=== PATIENT | female | born 1970 | race American Indian/Alaskan Native ===

== ENCOUNTER 2018-12-26 08:25 | Emergency (ER) | payer OTHER ==
[~2018-12-26] VITALS: Ht 160 cm; Wt 59.5 kg
[2018-12-26 08:33] VITALS: BP 110/73; PULSE 85; TEMP 98.6
[2018-12-26] MEDS ORDERED: LEXAPRO 10MG10 MG PO (08:46)
[2018-12-26] MEDS ORDERED: XANAX .25M0.25 MG/TA PO (08:47)
[2018-12-26] MEDS ORDERED: DESYREL 50MG50 MG PO (08:47)
[2018-12-26 10:04] LABS: HIV 1/2 Antibodies Non-Reactive; HIV-1p24 Antigen Non-Reactive
[2018-12-26 17:08] LABS: HEPATITIS B SURFACE ANTIGEN Negative (Negative); HEPATITIS C VIRUS ANTIBODY Negative (Negative)
== END 2018-12-26 09:40 | disposition home or self-care (01) ==
LOC: COL.ER 08:25
PROVIDERS: Physician Assistant
DX: S69.92XA Unspecified injury of left wrist, hand and finger(s), initial encounter (principal); F32.9 Major depressive disorder, single episode, unspecified; F41.9 Anxiety disorder, unspecified; W46.1XXA Contact with contaminated hypodermic needle, initial encounter; Y92.59 Other trade areas as the place of occurrence of the external cause